=== PATIENT | female | born 1935 | race Caucasian/White ===

== ENCOUNTER → 2017-02-26 | Outpatient (CLI) | payer OTHER ==
[~2017-02-26] MED LIST: ACETAMINOPHEN500 M3 PO; ALBUTEROL17 GM INH; ASPIRIN81 MG; ATROVENT HFA12.9 GM INH; BENZONATATE PO; CLOPIDOGREL75 MG; CRESTOR PO; DIOVAN HCT 320/1 TA1 PO; DIOVAN320 MG PO; FISH OIL 1,0001 CAP PO; LORTAB 10/500 T1 TAB PO; LORTAB 5-325 M1 EACH PO; MAXZIDE 75/50 T1 TAB PO; NAPROSYN500 MG PO; NEURONTIN PO; NEURONTIN100 MG; NORVASC; NORVASC PO; NORVASC10 MG PO; SLOW-MAG64 MG PO; TOPROL XL; VENTOLIN5 MG/ML; WELLBUTRIN; [UNRECOGNIZED DRUG - OTHER]
--- NOTE | ~2017-02-26 | CT4 ---
[facility] A Service of [facility] & [facility] RADIOLOGY TEXT RESULTS PATIENT: KATHRINE BOLES LOCATION: [facility] : 31 UNIT #: [id number] AGE: [address]: DYLAN ORELLANA SEX: F ORDER DR: [id number] [facility] [address] [place], [place] [address] [id number] O MR#: [id number] [facility] #: [id number] NAME: KATHRINE BOLES : 1935 SEX: F STUDY DATE/TIME: 02/26/2017 13:13 UNIT: [facility]AT ROOM: STUDY DESCRIPTION: CT Abd and Pelv Wo Cont Attending Physician: Dylan Orellana Referring Physician: Dylan Orellana Ordering Physician: Tamie Tinsley Primary Care Physician: Dylan Orellana MEDICAL IMAGING REPORT This report is preliminary unless electronic signature is present EXAM CT abdomen and pelvis without contrast dated 02/26/2017 HISTORY Palpable abnormality in the left side of the abdomen for [address] abdomen with contrast 08/22/2009. PROCEDURE 5 mL noncontrast axial images through the abdomen and pelvis. Enteric contrast only was administered. TECHNIQUE This CT exam was performed with one or more of the following radiation dose reduction techniques: automatic exposure control, adjustment of mA and/or kV according to patient size, and iterative reconstruction. FINDINGS Abdomen: Pathologic adenopathy is seen within the left common iliac and external iliac chain extending into the groin. A fish oil tablet has been placed at the site of the patient's palpable complaint by the technologist, corresponding to left inguinal adenopathy. The dominant shannon mass at this location measures nearly 3.1 x 4 cm. An index left external iliac chain node measures 3.0 x 1.8 cm, and an index left common iliac chain node measures 1.8 x 1.3 cm. Mild emphysematous changes of lung bases with benign calcified granuloma left lower lobe. Stent versus calcification in the right coronary artery. Stable right hepatic lobe cyst. Gallbladder, spleen, pancreas and kidneys [facility] A Service of [facility] & [facility] RADIOLOGY TEXT RESULTS PATIENT: KATHRINE BOLES LOCATION: [facility] : 31 UNIT #: [id number] AGE: [address]: DYLAN ORELLANA SEX: F ORDER DR: have normal noncontrast appearance. Bilateral low-density adrenal nodules, left measuring 2.9 x 1.9 cm (Hounsfield units -9.6), right measuring 1.5 x 1.3 cm (Hounsfield units 4.5), consistent with benign adenomas. Extensive diverticular changes are seen within the colon without CT evidence of acute diverticulitis. Moderately advanced calcific atherosclerosis is seen within the abdominal aorta which is quite tortuous. 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 FINDINGS Pelvis: Moderate fecal distension of the rectum. Uterus is atrophic. Urinary bladder within normal limits. No free fluid. Bilateral pedicle screw and vertical fusion carmelina stabilization of the lumbar spine with levoscoliosis. Extensive degenerative changes throughout the imaged thoracolumbar spine without evidence of acute or suspicious osseous lesion. IMPRESSION 1. Pathologic adenopathy along the left common iliac and external iliac chain extending into the left inguinal region. The palpable abnormality in the left inguinal region corresponds to a nearly 4 cm shannon mass. Findings are highly suspicious for malignancy. The palpable shannon mass in the inguinal lumbar region would be easily minimal to CT-guided biopsy if desired. 2. Stable bilateral adrenal adenomas. 3. Stable right hepatic cyst. 4. Mild emphysema. 5. Mild coronary calcification versus stent. Correlate with cardiac history. 6. Extensive degenerative changes of the lumbar spine with levoscoliosis and bilateral Pace carmelina fusion. No suspicious osseous lesions. 7. Extensive uncomplicated colonic diverticulosis. Dictated by... Kayleen Berry M.D. THIS IS AN ELECTRONICALLY VERIFIED REPORT Kayleen Berry M.D. at 03/02/2017 8:42 AM RYAN/oliver TD: 02/27/2017 01:19 JOB #: [id number] MEDICAL IMAGING REPORT Page 1 of 1 COPY
[2017-02-26 12:55] LABS: POC - CREATININE 1.3 mg/dL (0.44-1.03)
== END | disposition home or self-care (01) ==
LOC: CCAT 11:16
PROVIDERS: Family Medicine
DX: R19.04 Left lower quadrant abdominal swelling, mass and lump (principal); D35.02 Benign neoplasm of left adrenal gland; D35.01 Benign neoplasm of right adrenal gland; J43.9 Emphysema, unspecified; K76.89 Other specified diseases of liver; K57.30 Diverticulosis of large intestine without perforation or abscess without bleeding; M47.896 Other spondylosis, lumbar region; M41.9 Scoliosis, unspecified; R59.0 Localized enlarged lymph nodes
CPT/HCPCS: 74176; 82565